=== PATIENT | female | born 1995 | race American Indian/Alaskan Native ===

== ENCOUNTER 2020-11-21 20:07 | Emergency (ER) | payer SELFPAY ==
[2020-11-21 20:26] VITALS: BP 119/72
[2020-11-21] MEDS ORDERED: predniSONE 50 MG TAB PO STA (23:25)
--- NOTE | 2020-11-21 23:59 | Emergency Department Report ---
ED Rash HPI - HPI Chief Complaint: Skin Rash Stated Complaint: HANDS /NECK INFECTION DUE TO ECZEMA Time Seen by Provider: 11/21/20 23:23 Duration: 5 Days Suspected Cause: Other (On exam history) Rash Symptoms: Yes Itching Severity: moderate Other History: 25-year-old F [place] female with a long history of progressively worsening eczema for the last several years presents emergency department complaining of an 82-year emergence of eczema to her neck which is been progressively worsening over the past few days for an unknown reasons. States she has been under a lot of stress and having some anxiety and depression which may have contributed to her eczema flareup about the [id number] lotions are not helpful so she seeks her prescription strength medications. Reports no fever, chills, sweats. No odynophagia or dysphagia no chest pain palpitation no nausea vomiting ED Review of Systems ROS: Stated complaint: HANDS /NECK INFECTION DUE TO ECZEMA Other details as noted in HPI Comment: All other systems reviewed and negative ED Past Medical Hx - Past Medical History Previous Medical History?: No - Surgical History Past Surgical History?: No - Medications Home Medications: Home Medications Medication Instructions Recorded Confirmed Last Taken Type Mometasone Furoate [Elocon] 1 applicatio TP QDAY #45 cream..g. 11/21/20 Unknown Rx hydrOXYzine HCL [Atarax] 25 mg PO Q6HR PRN #20 tablet 11/21/20 Unknown Rx predniSONE [Deltasone] 50 mg PO QDAY #5 tab 11/21/20 Unknown Rx Rash Exam - Exam General: Vital signs noted. No distress. Alert and acting appropriately. HEENT: No Periorbital Edema, No Conjuctival Injection, No Chemosis, No Perioral Edema, No Tongue Edema, No Uvular Edema, No Compromised Airway, No Drooling Lungs: Yes Good Air Exchange (Normal Breath Sounds), No Wheezes, No Ronchi, No Stridor, No Cough, No Labored Respirations, No Retractions, No Use of Accessory Muscles, No Other Abnormal Lung Sounds Heart: Yes Regular, No Murmur Skin: Yes Other (Excoriated eczema rash to her neck and hands with some skin cracking as well.) Other: Positive: Abdomen Normal, Neurologic Normal, Musculoskeletal Normal ED Course Vital Signs 11/21/20 20:25 Temperature 98.5 F Pulse Rate 85 Respiratory 16 Rate Blood Pressure 119/72 O2 Sat by Pulse 100 Oximetry Critical care attestation.: If time is entered above; I have spent that time in minutes in the direct care of this critically ill patient, excluding procedure time. ED Disposition Clinical Impression: Eczema Disposition: [id number] TO HOME OR SELFCARE Is pt being admited?: No Does the pt Need Aspirin: No Condition: Stable Instructions: Eczema Prescriptions: hydrOXYzine HCL [Atarax] 25 mg PO Q6HR PRN #20 tablet PRN Reason: Itching predniSONE [Deltasone] 50 mg PO QDAY #5 tab Mometasone Furoate [Elocon] 1 applicatio TP QDAY #45 cream..g. Referrals: PRIMARY CARE, [Primary Care Provider] - 3-5 Days [facility] [Provider Group] - 3-5 Days
== END 2020-11-22 00:50 | disposition home or self-care (01) ==
LOC: ED 20:07
DX: L30.9 Dermatitis, unspecified (principal); Z79.899 Other long term (current) drug therapy
CPT/HCPCS: 99282; J7512